=== PATIENT | female | born 1965 | race Caucasian/White ===

== ENCOUNTER 2016-06-09 10:22 | Outpatient (RCR) | payer MEDICARE | END 2016-09-07 | disposition home or self-care (01) | LOC: DT 10:22 | PROVIDERS: ATTEND Family Medicine | DX: E11.649 Type 2 diabetes mellitus with hypoglycemia without coma (principal); Z71.3 Dietary counseling and surveillance; Z68.30 Body mass index [BMI] 30.0-30.9, adult | CPT/HCPCS: 97802 ==

== ENCOUNTER → 2016-08-09 | Outpatient (REF) | payer MEDICARE, OTHER ==
[~2016-08-09] MED LIST: AC325T PO; ALB0.5V IH; ALBU2.5V4 INH; ALBU2.5V4 NEB; ALBU8.5H2 IH; AMOX1TAB12 PO; ASP81CT PO; ASPI-860 PO; ATOR20TA PO; ATOR20TA54 PO; AZIT250T PO; AZTH250C PO; BACL10TA PO; BENZ-13 PO; BUDE90AE2 IH; CEFD300C PO; CHOL400T29 PO; DICY10CA12 PO; DOCU100C8 PO; FAMO20TA13 PO; GBPN300C PO; GFN600TCR PO; IBP200T PO; IBUP-1772 PO; INSU100C7 SQ; INSU100I14 SQ; INSU100V32 SC; IPRA3AMP11 INH; LEVO500T16 PO; LISI-594 PO; LISI5TAB14 PO; LSNP10T PO; MAGN400O7 PO; MELO-255 PO; METF1000 PO; METF500T4 PO; METH4TAB27 PO; MNTL10T PO; MULT-955 PO; NF-ESOM40C PO; OMEG300C3 PO; OMEP20CA12 PO; OXYC1TAB6 PO; PAMI30VI8 SQ; PANT40TA3 PO; POLY17PO2 PO; POLY1DRO2 OU; PRAV40TA2 PO; PRD20T PO; QUET50TA3 PO; SERT25TA PO; SERT50TA PO; VILA20TA; VILA40TA PO; VIT-9 PO; VIT1CAPS43 PO; ZLP10T PO; ZOLP10TA PO; [UNRECOGNIZED DRUG - OTHER]
[2016-08-09 12:13] LABS: BASOPHILS % (AUTO) 1 % (0-2); EOSINOPHILS # (AUTO) 0.2 10^3uL; EOSINOPHILS % (AUTO) 3 % (0-4); LYMPHOCYTES # (AUTO) 2.3 X10^3; MEAN CORPUSCULAR HEMOGLOBIN 30.1 PG (26.0-34.0); MEAN CORPUSCULAR HGB CONC 34.2 g/dL (31.0-37.0); MEAN CORPUSCULAR VOLUME 88 FL (80-100); MEAN PLATELET VOLUME 9.7 FL (6.0-9.5); MONOCYTES # (AUTO) 0.6 X10^3; MONOCYTES % (AUTO) 7 % (3-11); NEUTROPHILS # (AUTO) 5.8 X10^3; NEUTROPHILS % (AUTO) 64 % (51-67); PLATELET COUNT 400 10^3uL (150-450); WHITE BLOOD COUNT 8.92 10^3uL (4.0-11.0)
[2016-08-09 12:30] LABS: ANION GAP 15.1 MEQ/L (3-15); CALCULATED IONIZED CALCIUM 4.3 mg/dL (3.8-4.6); TOTAL PROTEIN 6.9 g/dL (6.4-8.5)
== END ==
LOC: LAB 11:21
PROVIDERS: ATTEND Family Medicine
DX: R53.83 Other fatigue (principal)
CPT/HCPCS: 80053; 82306; 82607; 82746; 85025

== ENCOUNTER 2016-09-24 11:54 | Inpatient (IN) | payer MEDICARE ==
[~2016-09-24] VITALS: Ht 167.6 cm; Wt 89.1 kg
[2016-09-24] MEDS ORDERED: methylPREDNISolone 125 MG (Solu-MEDROL) VIAL IM ONE (12:50)
[2016-09-24] MEDS ORDERED: ALBUTEROL/IPRATROPIUM 3MG-0.5MG/3ML (DUONEB) NEB VIAL INH ONE (12:50)
[2016-09-24 13:08] LABS: INFLUENZA VIRUS TYPE A ANTIBOD Negative (NEGATIVE); INFLUENZA VIRUS TYPE B ANTIBOD Negative (NEGATIVE)
[2016-09-24] MEDS ORDERED: ALBUTEROL 0.083% NEB SOLUTION 2.5 MG/3 ML VIAL INH ONE ×2 (13:35→16:20)
[2016-09-24] MEDS ORDERED: SODIUM CHLORIDE FLUSH 10 ML SYR IV PRN (15:00)
[2016-09-24 15:21] LABS: MEAN CORPUSCULAR HEMOGLOBIN 30.6 PG (26.0-34.0); MEAN CORPUSCULAR HGB CONC 33.9 g/dL (31.0-37.0); MEAN CORPUSCULAR VOLUME 90 FL (80-100); MEAN PLATELET VOLUME 9.5 FL (6.0-9.5); PLATELET COUNT 383 10^3uL (150-450); WHITE BLOOD COUNT 18.25 10^3uL (4.0-11.0)
[2016-09-24 15:33] LABS: ALBUMIN 3.9 g/dL (3.4-5.0); ANION GAP 15.2 MEQ/L (3-15); TOTAL PROTEIN 7.1 g/dL (6.4-8.5)
[2016-09-24 15:38] LABS: BAND NEUTROPHILS % 3 % (0-6); EOSINOPHILS % 1 % (0-4); MONOCYTES # 0.5 #; MONOCYTES % 3 % (3-11); RBC MORPH NORMAL (NORMAL); SEGMENTED NEUTROPHILS % 82 % (51-67); TOTAL CELLS COUNTED 100
[2016-09-24] MEDS ORDERED: LEVOFLOXACIN 500 MG/100 ML IV 100 ML IV ONE (17:10)
[2016-09-24] MEDS ORDERED: LORazepam 2 MG/ML (ATIVAN) 1 ML VIAL IV ONE (17:10)
--- NOTE | 2016-09-24 17:50 | NUR ---
Admit to room 305 from ED per w/c c son accompanying
[2016-09-24] MEDS ORDERED: POLYETHYLENE GLYCOL 17 GM (MIRALAX) PACKET PO PRN (18:05)
[2016-09-24] MEDS ORDERED: ALBUTEROL 0.5% NEB SOLUTION 2.5 MG/0.5 ML VIAL INH PRN (18:05)
[2016-09-24] MEDS ORDERED: ACETAMINOPHEN 325 MG TAB (TYLENOL) PO PRN (18:05)
[2016-09-24] MEDS ORDERED: IBUPROFEN 600 MG (MOTRIN) TAB PO PRN (18:05)
--- NOTE | 2016-09-24 18:10 | NUR ---
See Medical admission assessment - audible end exp wz c accessory muscle use
[2016-09-24 18:17] VITALS: BP 169/69
[2016-09-24 18:24] VITALS: BP 169/69
[2016-09-24] MEDS: INSULIN LISPRO 1 UNIT/0.01 ML (HUMALOG) DOSE SC SCH (18:40)
[2016-09-24] MEDS ORDERED: SODIUM CHLORIDE FLUSH 10 ML ONE (18:42)
--- NOTE | 2016-09-24 19:14 | NUR ---
Report given to Rachelle WESTFALL and care relinquished
--- NOTE | 2016-09-24 19:25 | NUR ---
Pt is sitting on edge of bed, son is at bedside. Alert and oriented x 4, Resp are labored, use of excessory muscles, wheezing on inspiration and expiration, diminished bases, Moist cough. Pt is assisted to bathroom, ambulates well, does have some weakness. HRRR, BS are active x 4 quadrants. SL is patent, no redness, swelling, or s/s of infection noted at this time. Denies pain or needs at this time. For further information see assessment. Call light is in reach, will continue to monitor.
[2016-09-24] MEDS: ALBUTEROL/IPRATROPIUM 3MG-0.5MG/3ML (DUONEB) NEB VIAL INH SCH ×2 (20:04→23:00)
--- NOTE | 2016-09-24 20:45 | NUR ---
RT reports to this RN that pt is not responding to breathing treatments. This RN said she would let Dr. Estrada know.
[2016-09-24] MEDS: INSULIN GLARGINE 1 UNIT/0.01ML (LANTUS) DOSE SC SCH (20:51)
--- NOTE | 2016-09-24 21:09 | NUR ---
This RN notified Dr. Estrada that RT did not think pt was responding to breathing treatments. Dr. Estrada said, "She has a virus with her asthma, and has not been taking any of her home medications for her asthma, so I did not expect a big difference with the breathing treatments." Also let Dr. Estrada know that pt had a BS of 400, received order to start pt on Medium SSI.
[2016-09-24] MEDS ORDERED: INSULIN LISPRO 1 UNIT/0.01 ML (HUMALOG) DOSE SC SCH (21:15)
[2016-09-24] MEDS ORDERED: MAGNESIUM 2 GM/50 ML IVPB 50 ML IV ONE (23:20)
[2016-09-24] MEDS ORDERED: SODIUM CHLORIDE 50 ML IV ONE (23:31)
[2016-09-24] MEDS ORDERED: MAGNESIUM SULFATE 1 GM/2 ML VIAL ONE (23:32)
[2016-09-24 23:45] VITALS: BP 131/75
[2016-09-25] VITALS (7 sets, daily range): BP systolic 130–184; BP diastolic 60–80
[2016-09-25] MEDS: ALBUTEROL/IPRATROPIUM 3MG-0.5MG/3ML (DUONEB) NEB VIAL INH SCH ×4 (03:24→20:25)
--- NOTE | 2016-09-25 04:33 | NUR ---
Pt is sitting up in bed, just recently assisted to restroom, SOA, received RT treatment about an hour ago. Call light is in reach, denies needs, will continue to monitor.
[2016-09-25] MEDS ORDERED: INSULIN LISPRO 1 UNIT/0.01 ML (HUMALOG) DOSE SC ONE (06:00)
[2016-09-25 06:08] LABS: MEAN CORPUSCULAR HEMOGLOBIN 31.2 PG (26.0-34.0); MEAN CORPUSCULAR HGB CONC 34.3 g/dL (31.0-37.0); MEAN CORPUSCULAR VOLUME 91 FL (80-100); MEAN PLATELET VOLUME 10.2 FL (6.0-9.5); PLATELET COUNT 447 10^3uL (150-450); WHITE BLOOD COUNT 18.99 10^3uL (4.0-11.0)
[2016-09-25 06:26] LABS: ALBUMIN 3.7 g/dL (3.4-5.0); ANION GAP 18.1 MEQ/L (3-15); CALCULATED IONIZED CALCIUM 4.5 mg/dL (3.8-4.6); TOTAL PROTEIN 6.4 g/dL (6.4-8.5)
[2016-09-25 06:46] LABS: BAND NEUTROPHILS % 2 % (0-6); EOSINOPHILS % 0 % (0-4); LYMPHOCYTES # 1.3 #; MONOCYTES # 0.5 #; MONOCYTES % 3 % (3-11); RBC MORPH NORMAL (NORMAL); SEGMENTED NEUTROPHILS % 88 % (51-67); TOTAL CELLS COUNTED 100
[2016-09-25] MEDS ORDERED: INSULIN LISPRO 1 UNIT/0.01 ML (HUMALOG) DOSE SC SCH ×2 (07:30)
[2016-09-25] MEDS ORDERED: predniSONE 20 MG (DELTASONE) TABLET PO SCH (08:00)
--- NOTE | 2016-09-25 08:25 | NUR ---
NUTRITION ASSESSMENT Level 1 Patient: Leonora Bailey Age/Sex: 51/F Date Screened: 09-25-16 Weight: 196#/89.1 kg Height: 66 inches Primary Diagnosis: asthma Diet Order: medium diabetic, vegan Relevant labs: potassium 5.7, glucose 444 Food allergies: N Nutrition Assessment Criteria Age over 80: N Body Mass Index (BMI) under 19: N Admission Screening Indicates Risk? 3 points Moderate/High Risk Diagnosis: N TPN or PPN: N NPO or clear liquid diet: N Serum Glucose <70 or >180: 3 points Hgb A1c >6.7: N/A Total: 6 points Risk Screen: __ Patient at low nutritional risk based on available data; reevaluate in 5-7 days __ Patient at moderate nutritional risk based on available data; reevaluate in 3-5 days _X_ Patient at high nutritional risk; complete Nutrition Assessment within 48 hours of admission.
--- NOTE | 2016-09-25 09:00 | NUR ---
Pt sitting up in bed at this time. Appears quite anxious. Denies SOA or pain. Resprs slightly labored, even on RA. Skin warm, dry, intact. Pt states "I don't even know what's wrong with me. I want to go home". Informed pt of diagnosis. When asked if she feels well enough to go home, pt shrugs her shoulders. Bloustine notified of pt's anxiety.
[2016-09-25] MEDS: INSULIN LISPRO 1 UNIT/0.01 ML (HUMALOG) DOSE SC SCH ×7 (09:05→21:06)
--- NOTE | 2016-09-25 09:37 | NUR ---
Pt found lying in bed on RA, SPO2 98%, HR 91, RR 18 and mildly labored, BS have wheezes in all lung saavedra with audible wheezes also. Duoneb given with minimal change in BS post Tx. Dr Granda consulted for modification of Tx.
[2016-09-25] MEDS ORDERED: ALBUTEROL 0.083% NEB SOLUTION 2.5 MG/3 ML VIAL INH ONE (09:55)
[2016-09-25] MEDS ORDERED: SODIUM CHLORIDE 0.9% NEB SOLN 3 ML VIAL ONE (09:56)
--- NOTE | 2016-09-25 09:56 | NUR ---
NUTRITION ASSESSMENT Level II Patient: Leonora Bailey Age/Sex: 51/F Date Assessed: 09-25-16 ASSESSMENT Pertinent History: Patient admitted with asthma and screened at high nutritional risk secondary to hx. severely restricted vegan diet with unintentional weight loss and severe hypoglycemia, and current hyperglycemia. PMHx includes depression, IBS, HTN, diabetes and anxiety. I saw pt. as an outpatient in 2015 re: appropriate vegan diet to stabilize blood sugars. At that time, pt. was not eating much secondary to decreased appetite, and was mostly eating fruit, salad, black du burgers and avocados. She had lost 38# between January and 2015. Since then, she has regained 5#. Pt. reports being ALLERGIC to ORANGES; I entered this into [employer]. She also avoids bread, pasta, cereal, tea, coffee and of course dairy. She drinks mostly water with occasional diet Pepsi, and will eat rice and potatoes. She thinks that grapes, apples and watermelon spike her blood sugar. Meds/Nutrition: Prednisone, Humalog, Lantus Weight: 196#/89.1 kg Height: 66 inches Body Mass Index (BMI): 31.7 [place] Body Weight : 130#/59 kg % IBW: 150% GASTROINTESTINAL Appetite: fair, eating 50% Diet Order: medium diabetic, vegan Unintentional loss of >10 lbs. in 3 months: N Difficult to chew/swallow: N Diabetes: Yes Relevant Labs: potassium 5.7, glucose 444 Calculations for Nutritional Assessment Estimated calorie needs: 22-25 kcals/kg = 1,960-2,225 kcals Estimated protein needs: 1.0-1.1 g/kg = 89-97 g./day DIAGNOSIS 1. Nutrition Diagnosis: Altered nutrition-related lab values (glucose) related to medications and endocrine dysfunction as evidenced by glucose 444 in pt. with diabetes taking steroids. NUTRITIONAL INTERVENTION Goal: Patient will receive adequate nutrition to meet her needs. Plan: Will tailor menu to meet vegan requirements as well as controlled CHO for diabetes. Will emphasize fresh fruit and vegetables within CHO allowance as well as black beans as a primary protein source. Will follow closely. MONITORING & EVALUATION _X_ Monitor patients menu selections _X_ Monitor patients food intake per nursing notes __ Monitor NPO/clear liquid days _X_ Monitor lab values __ Monitor I&O __ Other
--- NOTE | 2016-09-25 10:04 | NUR ---
Starting continuous nebulizer at 1006 with a goal total of 10 mg Albuterol over 1 hour. BS have wheezes throughout all lung saavedra.
[2016-09-25] MEDS ORDERED: DEXTROSE 50% 25 GM/50 ML SYRINGE IV PRN (10:10)
[2016-09-25] MEDS ORDERED: BENZONATATE 100 MG (TESSALON) CAPSULE PO PRN (10:10)
[2016-09-25] MEDS ORDERED: GLUCAGON EMERGENCY 1 MG/KIT IM PRN (10:10)
[2016-09-25] MEDS ORDERED: DEXTROSE ORAL GEL (GLUTOSE 40%) 15 GM TUBE PO PRN (10:10)
[2016-09-25] MEDS: LORazepam 2 MG/ML (ATIVAN) 1 ML VIAL IV PRN ×2 (10:19→15:06)
--- NOTE | 2016-09-25 10:19 | NUR ---
PRN Ativan given at this time via SIVP. Breathing tx still in process. RT in room.
[2016-09-25] MEDS: epiNEPHrine (RACEMIC) 2.25% NEB SOLN 11.25 MG/0.5 ML VIAL INH PRN ×2 (10:29→14:19)
--- NOTE | 2016-09-25 10:29 | NUR ---
Half way through hour long neb, 11.25 mg Racemic epi/3 ml NS given via SVN
--- NOTE | 2016-09-25 10:50 | NUR ---
Hour long neb finished at 1100, accessory muscle use decreased, upper airway wheezes decreased, Pt has mild shaking of hands, but states she feels better than when we started.
[2016-09-25] MEDS ORDERED: lisINopril 5 MG (PRINIVIL) TABLET PO SCH (11:58)
[2016-09-25] MEDS ORDERED: methylPREDNISolone 125 MG (Solu-MEDROL) VIAL IV ONE (12:00)
[2016-09-25] MEDS: HALL'S COUGH DROPS MM PRN ×2 (12:13→16:23)
[2016-09-25] MEDS: guaiFENesin ER 600 MG (MUCINEX) TAB PO SCH ×2 (12:13→21:03)
--- NOTE | 2016-09-25 12:15 | NUR ---
Pt resting in bed with family at bedside. Resprs nonlabored, even on RA. Denies needs.
[2016-09-25] MEDS: lisINopril 10 MG (PRINIVIL) TABLET PO SCH (13:05)
[2016-09-25] MEDS ORDERED: NS FLUSH 3 ML PRN IV (14:15)
--- NOTE | 2016-09-25 14:19 | NUR ---
MULTIDISCIPLINARY MTG/DR. KENYON: Pt. admitted for URI, status asthmaticus and respiratory failure. Pt. therapies were escalated and she appears to be doing better. Pt. home medications were resumed and she will possibly be discharged home Sunday. No discharge needs identified at this time.
--- NOTE | 2016-09-25 14:21 | NUR ---
Pt found lying in bed on RA, SPO2 95%, HR 113 RR 18-20 and mildly labored with upper airway stridor and wheezes in upper lobes of both lungs. Duoneb and 11.25 mg Racemic Epi given via SVN tolerated well. Both stridor and wheezes decreased post Tx. IS on hold at this time.
--- NOTE | 2016-09-25 14:23 | NUR ---
MED REC COMPLETE--current med list obtained from external med history application, retail pharmacy ([facility]), patient interview, and list from patient's PCP (Dr. Romero). Addendum: 09/25/16 at 1425 by Pamela Fairchild PHARM Completed by Shawnee Adhikari Pharm. D. Candidate 2017
--- NOTE | 2016-09-25 14:30 | NUR ---
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 States she feels better. Denies needs.
[2016-09-25] MEDS ORDERED: SODIUM CHLORIDE FLUSH 10 ML SYR IV PRN (15:00)
--- NOTE | 2016-09-25 15:06 | NUR ---
Pt tearful in room, unable to keep legs still. PRN Ativan given at this time. Will continue to monitor.
[2016-09-25] MEDS ORDERED: QUEtiapine 50 MG (SEROquel) TAB IMMEDIATE RELEASE PO ONE (15:35)
[2016-09-25] MEDS ORDERED: LEVOFLOXACIN 500 MG/100 ML IV 100 ML IV ONE (17:10)
--- NOTE | 2016-09-25 18:18 | NUR ---
Called to room to "give a treatment" by staff, when I arrived to the room within four to five minutes the Pt was sound asleep. I asked if RN had been in the room recently and she said she was about to go in. When the RN went in the Pt didn't open her eyes, coughed once or twice and did not seem to be in distress at this time. I did not wake her.
--- NOTE | 2016-09-25 18:45 | NUR ---
Pt asleep in bed at this time. Family states she has not eaten her dinner. Skin warm, dry, intact. Resprs nonlabored, even on RA. No audible wheezes or stridor noted. This nurse noted recent self harm scabs on L upper arm. Old scars present from wrist up to shoulder on bilateral arms, but recent scratches and scabs noted on L upper arm. Bloustine notified.
--- NOTE | 2016-09-25 19:25 | NUR ---
Pt is resting in bed, son and pt's boyfriend at bedside. Alert and oriented x 4, Resp are labored, use of excessory muscles, wheezing on inspiration and expiration, diminished bases, Moist cough. HRRR, BS are active x 4 quadrants. IV is infusing without difficulty, no redness, swelling, or s/s of infection noted at this time. Denies pain or needs at this time. For further information see assessment. Call light is in reach, will continue to monitor.
[2016-09-25] MEDS ORDERED: BUDESONIDE NEBS 0.5 MG/2ML (PULMICORT) AMP INH ONE (19:53)
[2016-09-25] MEDS: BUDESONIDE NEBS 0.5 MG/2ML (PULMICORT) AMP INH SCH (20:25)
[2016-09-25] MEDS ORDERED: GABAPENTIN 300 MG (NEURONTIN) CAP PO SCH (21:00)
[2016-09-25] MEDS ORDERED: QUEtiapine 50 MG (SEROquel) TAB IMMEDIATE RELEASE PO SCH (21:00)
[2016-09-25] MEDS: methylPREDNISolone 125 MG (Solu-MEDROL) VIAL IV SCH (21:02)
[2016-09-25] MEDS: GABAPENTIN 300 MG (NEURONTIN) CAP PO SCH (21:03)
[2016-09-25] MEDS: MONTELUKAST 10 MG (SINGULAIR) TAB PO SCH (21:03)
[2016-09-25] MEDS: QUEtiapine 50 MG (SEROquel) TAB IMMEDIATE RELEASE PO SCH (21:04)
[2016-09-25] MEDS: ATORVASTATIN 10 MG (LIPITOR) TABLET PO SCH (21:04)
[2016-09-25] MEDS: INSULIN GLARGINE 1 UNIT/0.01ML (LANTUS) DOSE SC SCH (21:06)
--- NOTE | 2016-09-26 03:57 | NUR ---
Pt is resting in bed asleep on her stomach, son is asleep in room on cot. Has been asleep most of this shift, has had a flat affect during this shift. Call light is in reach, will continue to monitor.
[2016-09-26 04:34] VITALS: BP 147/73
[2016-09-26 06:06] LABS: MEAN CORPUSCULAR HEMOGLOBIN 30.9 PG (26.0-34.0); MEAN CORPUSCULAR HGB CONC 34.3 g/dL (31.0-37.0); MEAN CORPUSCULAR VOLUME 90 FL (80-100); MEAN PLATELET VOLUME 9.8 FL (6.0-9.5); PLATELET COUNT 445 10^3uL (150-450); WHITE BLOOD COUNT 21.84 10^3uL (4.0-11.0)
[2016-09-26 06:21] LABS: ALBUMIN 3.4 g/dL (3.4-5.0); ANION GAP 11.4 MEQ/L (3-15); MAGNESIUM* 2.1 mg/dL (1.6-2.3); PHOSPHORUS 3.8 mg/dL (2.4-4.9)
[2016-09-26 06:38] LABS: BAND NEUTROPHILS % 0 % (0-6); EOSINOPHILS % 0 % (0-4); LYMPHOCYTES # 1.3 #; MONOCYTES # 0.2 #; MONOCYTES % 1 % (3-11); RBC MORPH NORMAL (NORMAL); SEGMENTED NEUTROPHILS % 93 % (51-67); TOTAL CELLS COUNTED 100
[2016-09-26 07:41] VITALS: BP 136/64
[2016-09-26] MEDS: ALBUTEROL/IPRATROPIUM 3MG-0.5MG/3ML (DUONEB) NEB VIAL INH SCH ×4 (07:49→20:10)
[2016-09-26] MEDS: BUDESONIDE NEBS 0.5 MG/2ML (PULMICORT) AMP INH SCH ×2 (07:49→20:10)
[2016-09-26] MEDS: INSULIN LISPRO 1 UNIT/0.01 ML (HUMALOG) DOSE SC SCH ×7 (08:00→21:08)
[2016-09-26] MEDS: MULTIVITAMIN W/MINERALS (THERAGRAN M) TABLET PO SCH (08:00)
[2016-09-26] MEDS: PANTOPRAZOLE 40 MG (PROTONIX) TAB PO SCH (08:18)
[2016-09-26] MEDS: guaiFENesin ER 600 MG (MUCINEX) TAB PO SCH ×2 (08:18→21:09)
[2016-09-26] MEDS: ENOXAPARIN 40 MG/0.4 ML (LOVENOX) SYR SC SCH (08:19)
[2016-09-26] MEDS: OMEGA-3 FATTY ACIDS (FISH OIL) 500 MG CAPSULE PO SCH (08:19)
[2016-09-26] MEDS: methylPREDNISolone 125 MG (Solu-MEDROL) VIAL IV SCH ×2 (08:19→21:08)
[2016-09-26] MEDS: lisINopril 10 MG (PRINIVIL) TABLET PO SCH (08:22)
[2016-09-26] MEDS: NS FLUSH 3 ML DAILY IV SCH (08:40)
--- NOTE | 2016-09-26 08:40 | NUR ---
Pt awake in room, has already had breathing treatment with Rafia RT. Pt refuses to eat bfst- denies nausea, just states no appetite. Spoke with Dr. Granda regarding amount of Humalog to give for fasting blood sugar of 266- VORB to only give sliding scale at this time- Humalog 5units given to KRZYSZTOF. Dried cuts noted to KRZYSZTOF when giving insulin. Crying and tearful during assessment, AM meds and Dr. Granda rounding. Pt unable to verbalize emotions or concerns- cries. Refused to take Lisinopril this AM- states she takes at HS- Spoke to Yoni Lacey regarding changing time in eMar. Refused multivitamin- states "I'm not taking any vitamins get it out of here!". Audible wheezes noted- remains on RA. Resp even, rate of 22. Call light within reach, door ajar for frequent visual monitoring.
[2016-09-26] MEDS ORDERED: OMEGA-3 FATTY ACIDS (FISH OIL) 500 MG CAPSULE PO SCH (09:00)
[2016-09-26] MEDS ORDERED: PANTOPRAZOLE 40 MG (PROTONIX) TAB PO SCH (09:00)
[2016-09-26] MEDS: LORazepam 2 MG/ML (ATIVAN) 1 ML VIAL IV PRN (10:51)
--- NOTE | 2016-09-26 11:13 | NUR ---
20g IV dcd from LFA due to tenderness/irritated site. 22g IV started in Rt wrist by Bhanu WESTFALL from ICU. Ativan 1mg IV given as ordered for anxiety. Pts boyfriend and son are at bedside. Pt c/o KRZYSZTOF Morataya RT at doorside for breathing treatment.
[2016-09-26] MEDS: ALBUTEROL 0.083% NEB SOLUTION 2.5 MG/3 ML VIAL INH PRN ×2 (11:14→16:13)
--- NOTE | 2016-09-26 11:18 | NUR ---
Pt. requested SVN, Albuterol given @ 1118. Audible wheezing before and after tx. Aristeo. well with loose NPC. Pt. on room air, 94% after tx..
[2016-09-26 11:21] VITALS: BP 156/70
--- NOTE | 2016-09-26 14:48 | NUR ---
Pt has been resting quietly in bed, earbuds in place listening to music. No resp c/o or difficulties noted while she's been resting. Will cont to monitor patient.
--- NOTE | 2016-09-26 16:02 | NUR ---
Pt to shower- increased SOA, difficulty breathing. Rafia RT called- she is on her way to room for treatment. Pt is crying and tearful again- son at bedside. Addendum: 09/26/16 at 1604 by Mary Harmon RN O2 sats 98% on RA HR 84. Rafia in room for treatment.
[2016-09-26 16:06] VITALS: BP 140/62
[2016-09-26] MEDS ORDERED: LORazepam 1 MG (ATIVAN) TABLET PO PRN (16:40)
[2016-09-26] MEDS: VIIBRYD 40 MG PO SCH (16:44)
--- NOTE | 2016-09-26 17:19 | NUR ---
Exp. wheezing before and after nebulizer tx's today. Pt. emotional most of the day. 95-98% sat's on room air today. 2 prn tx's today.
--- NOTE | 2016-09-26 17:25 | NUR ---
Pt asks for Ativan. Ativan 1mg PO given for anxiety- crying and tearful while son is at bedside. Pt kicking her feet in bed.
[2016-09-26] MEDS ORDERED: ASPIRIN 325 MG TAB PO ONE (18:10)
[2016-09-26] MEDS ORDERED: morphine INJ 2 MG/ML 1 ML SYRINGE IV PRN (18:10)
[2016-09-26] MEDS: NITROGLYCERIN SUBLINGUAL 0.4 MG (NITROQUICK) TABLET SL PRN ×2 (18:13→18:27)
--- NOTE | 2016-09-26 18:39 | NUR ---
180 Pt calls Cristela Thompson CNA to room- asks to talk to Dr. Granda- Cristela reported to this nurse the patient request. This nurse went to patient room to explain that Dr ana rollins is there anything RN could help with. She shakes her head "no". Then I asked pt if this was an emergent matter to talk to him or if I could relay a message to him. She states "My chest hurts." She can't answer whether she feels palpitations or cardiac related changed- pain is localized to left breast area. 1806- Dr. Granda is notified- states he will enter orders and be in to see patient. Rafia RT called for stat EKG. on her way. lab called for stat troponin. 1812- BP 164/76, HR 75, O2 92% RA. Crying and tearful, holding left chest. 1815-ASA 325mg PO given. Nitro 1tab given. pain is rated 7/10 localized still. 1820- Lab in room for Troponin, RT in room for EKG. Rates chest pain the same- 7/10 localized. BP 168/74. 1822- O2 placed at 2L nc per Rafia RT. 1826- 158/82, Persistent 4/10 localized chest pain- Nitro 1tab given now. Crying and tearful. Pt c/o headache. Explained to patient numerous times during all of these activities purpose of procedure- but pt closes eyes and cries- won't respond to nurse. 1831- 160/80. Rates left chest pain 2/10 localized. 1837-158/80. Pain remains at 2/10. O2 @ 2L nc. Will cont to monitor patient. Dr. Granda on his way to assess pt.
--- NOTE | 2016-09-26 18:50 | NUR ---
Humalog 10units held- patient is refusing supper.
[2016-09-26] MEDS: ONDANSETRON 4 MG (ZOFRAN) ORAL DISSOLVE TAB PO PRN (18:54)
[2016-09-26] MEDS ORDERED: SODIUM CHLORIDE 0.9% NEB SOLN 3 ML VIAL ONE (19:37)
[2016-09-26 20:09] VITALS: BP 120/60
[2016-09-26] MEDS: epiNEPHrine (RACEMIC) 2.25% NEB SOLN 11.25 MG/0.5 ML VIAL INH PRN (20:10)
--- NOTE | 2016-09-26 20:15 | NUR ---
Pt found lying in bed on 2 l/min NC, SPO2 99%, HR 101, RR 18 and mildly labored with wheezes in bilateral upper lobes and mild stridor. 11.25 mg Racemic Epinephrine given with 3 ml NS followed by Duoneb and Pulmicort, all via SVN with occasional cough. Pt c/o feeling worse post Txs throughout the day. Cough increases during Tx. Pt did not tolerate Duoneb and Pulmicort for entire neb, stopped at Pt demand at about 2.5 mins in. Report of my visit given to MALOU Ngo.
[2016-09-26] MEDS: INSULIN GLARGINE 1 UNIT/0.01ML (LANTUS) DOSE SC SCH (21:08)
[2016-09-26] MEDS: QUEtiapine 50 MG (SEROquel) TAB IMMEDIATE RELEASE PO SCH (21:09)
[2016-09-26] MEDS: MONTELUKAST 10 MG (SINGULAIR) TAB PO SCH (21:09)
[2016-09-26] MEDS: GABAPENTIN 300 MG (NEURONTIN) CAP PO SCH (21:09)
[2016-09-26] MEDS: ATORVASTATIN 10 MG (LIPITOR) TABLET PO SCH (21:09)
[2016-09-27 00:02] VITALS: BP 137/60
[2016-09-27 04:23] VITALS: BP 124/82
[2016-09-27 06:18] LABS: MEAN CORPUSCULAR HEMOGLOBIN 30.5 PG (26.0-34.0); MEAN CORPUSCULAR HGB CONC 33.7 g/dL (31.0-37.0); MEAN CORPUSCULAR VOLUME 90 FL (80-100); PLATELET COUNT 446 10^3uL (150-450)
--- NOTE | 2016-09-27 06:32 | NUR ---
Patient has seemed less anxious this shift and was able to sleep through most of the night. This AM, states that she is feeling a little better, able to speak in full sentences, stridor and wheezing not noticed. No needs at this time.
[2016-09-27 07:06] LABS: BAND NEUTROPHILS % 0 % (0-6); EOSINOPHILS % 0 % (0-4); LYMPHOCYTES # 1.8 #; MONOCYTES # 0.2 #; MONOCYTES % 1 % (3-11); RBC MORPH NORMAL (NORMAL); SEGMENTED NEUTROPHILS % 88 % (51-67); TOTAL CELLS COUNTED 100
[2016-09-27 07:43] VITALS: BP 124/62
[2016-09-27] MEDS: MULTIVITAMIN W/MINERALS (THERAGRAN M) TABLET PO SCH (08:00)
[2016-09-27] MEDS: guaiFENesin ER 600 MG (MUCINEX) TAB PO SCH ×2 (08:31→21:46)
[2016-09-27] MEDS: INSULIN LISPRO 1 UNIT/0.01 ML (HUMALOG) DOSE SC SCH ×7 (08:31→21:43)
[2016-09-27] MEDS: ENOXAPARIN 40 MG/0.4 ML (LOVENOX) SYR SC SCH (08:31)
[2016-09-27] MEDS: OMEGA-3 FATTY ACIDS (FISH OIL) 500 MG CAPSULE PO SCH (08:32)
[2016-09-27] MEDS: PANTOPRAZOLE 40 MG (PROTONIX) TAB PO SCH (08:32)
[2016-09-27] MEDS: ASPIRIN 81 MG CHEW (CHILDREN'S ASA) PO SCH (08:32)
[2016-09-27] MEDS: VIIBRYD 40 MG PO SCH (08:33)
[2016-09-27] MEDS: lisINopril 10 MG (PRINIVIL) TABLET PO SCH ×2 (08:35→21:47)
[2016-09-27] MEDS: NS FLUSH 3 ML DAILY IV SCH (09:00)
--- NOTE | 2016-09-27 10:09 | NUR ---
Pt. sleeping at this time, no audible wheezing, RN requested to not awaken pt..
--- NOTE | 2016-09-27 11:09 | NUR ---
Nutrition Follow Up: Patient has not been eating since admission, other than an occasional meal of 25%. Noted she has been very anxious and emotional the past few days and reports not being hungry. Weight today: N/A since admission--will request from nursing. Labs: N/A 1. I am sending her a homemade fruit smoothie with almond milk for lunch in an attempt to spark interest in eating. 2. Consider daily MVI. 3. Will continue to monitor length of time before her appetite perks back up. Expect intake to resume as illness improves.
--- NOTE | 2016-09-27 11:35 | NUR ---
Call placed to [facility] [phone] to refill script of Viibrid. No answer, message left on machine to return call to this nurse. Last home dose of Viibrid was given this AM. Patients boyfriend Tone in room and he states he would go pick script up from [facility] pharmacy and bring here to have verified by [facility] to give while inpatient.
--- NOTE | 2016-09-27 11:41 | NUR ---
Received return call from Leola WESTFALL at [place]- she will call refill script to [facility]'s pharmacy and leave message that Tone will pick it up. Message delivered to patient and Tone- verbalizes understanding.
[2016-09-27 11:47] VITALS: BP 132/70
[2016-09-27] MEDS: ALBUTEROL/IPRATROPIUM 3MG-0.5MG/3ML (DUONEB) NEB VIAL INH SCH ×2 (12:00→17:17)
[2016-09-27] MEDS: BUDESONIDE NEBS 0.5 MG/2ML (PULMICORT) AMP INH SCH (12:08)
--- NOTE | 2016-09-27 12:30 | NUR ---
Notified Dr. Granda that patient refused to eat lunch and that her 1200 blood glucose fingerstick was 160. Dr. Granda gave VORB to hold prandial Humalog 10units at this time.
[2016-09-27] MEDS ORDERED: KETOROLAC 30 MG/ML (TORADOL) 1 ML VIAL IV ONE (13:50)
[2016-09-27] MEDS ORDERED: SODIUM CHLORIDE 250 ML ONE (14:05)
[2016-09-27] MEDS: cefTRIAXone SODIUM 1,000 MG in SODIUM CHLORIDE 50 ML IV SCH (14:12)
[2016-09-27] MEDS ORDERED: AZITHROMYCIN VIAL 500 MG in SODIUM CHLORIDE 250 ML IV ONE (14:30)
--- NOTE | 2016-09-27 15:13 | NUR ---
louisa Wayne brought bottle of Viibrid to this nurse- sent to Pharmacy for verification. Verna Sutherland from pharmacy sent back to this nurse- placed in med room drawer. Rocephin 1g IV as ordered started at 1412. Zithromax IV as ordered started at 1451. IV to Rt wrist flushes without difficulty. Pt pleasant this afternoon, smiled at this nurse and thanked several times for care. Addendum: 09/27/16 at 1517 by Mary Harmon RN Toradol IV was given at 1412 as well.
[2016-09-27 15:52] VITALS: BP 140/72
[2016-09-27] MEDS: ONDANSETRON 4 MG (ZOFRAN) ORAL DISSOLVE TAB PO PRN (18:05)
[2016-09-27] MEDS: KETOROLAC 15 MG/ML (TORADOL) 1 ML VIAL IV PRN (18:06)
--- NOTE | 2016-09-27 18:10 | NUR ---
Pt refused to eat supper. Held Prandial insulin. Pt states she is nauseous- offered Zofran- patient agreed to take it. Given now. Toradol given now.
[2016-09-27 19:56] VITALS: BP 137/72
--- NOTE | 2016-09-27 20:00 | NUR ---
Patent resting in bed. Visiting with . Is in good spirits tonight. No discomforts stated at this time. States that son will be staying the night, tonight. Reminded to use call light when she has any needs. Call light within reach.
--- NOTE | 2016-09-27 20:37 | NUR ---
Pt assessed at this time, BS essentially clear, no distress, no PRN indicated. Pt asks not to be awakened during the night unless she calls for PRN.
[2016-09-27] MEDS: ATORVASTATIN 10 MG (LIPITOR) TABLET PO SCH (21:44)
[2016-09-27] MEDS: GABAPENTIN 300 MG (NEURONTIN) CAP PO SCH (21:45)
[2016-09-27] MEDS: QUEtiapine 50 MG (SEROquel) TAB IMMEDIATE RELEASE PO SCH (21:45)
[2016-09-27] MEDS: MONTELUKAST 10 MG (SINGULAIR) TAB PO SCH (21:45)
[2016-09-27] MEDS: INSULIN GLARGINE 1 UNIT/0.01ML (LANTUS) DOSE SC SCH (21:55)
--- NOTE | 2016-09-28 | NUR ---
Resting well. Respirations even and non-labored. IV Toradol administered as ordered. Patient has no concerns at this time.
[2016-09-28 00:11] VITALS: BP 110/68
[2016-09-28] MEDS: KETOROLAC 15 MG/ML (TORADOL) 1 ML VIAL IV PRN ×2 (00:51→05:38)
[2016-09-28 04:42] VITALS: BP 120/71
[2016-09-28] MEDS: ALBUTEROL/IPRATROPIUM 3MG-0.5MG/3ML (DUONEB) NEB VIAL INH SCH ×4 (05:00→19:47)
[2016-09-28] MEDS: INSULIN LISPRO 1 UNIT/0.01 ML (HUMALOG) DOSE SC SCH ×5 (05:52→21:36)
--- NOTE | 2016-09-28 06:14 | NUR ---
Rested well tonight at long intervals. No discomforts voiced. Stated no need for breathing treatment this morning. Call light within reach.
[2016-09-28] MEDS: BUDESONIDE NEBS 0.5 MG/2ML (PULMICORT) AMP INH SCH ×3 (07:24→19:47)
[2016-09-28 07:49] VITALS: BP 130/62
[2016-09-28] MEDS: NS FLUSH 3 ML DAILY IV SCH (09:00)
[2016-09-28] MEDS: PANTOPRAZOLE 40 MG (PROTONIX) TAB PO SCH (09:05)
[2016-09-28] MEDS: AZITHROMYCIN 250 MG TAB (ZITHROMAX) PO SCH (09:05)
[2016-09-28] MEDS: OMEGA-3 FATTY ACIDS (FISH OIL) 500 MG CAPSULE PO SCH (09:05)
[2016-09-28] MEDS: ASPIRIN 81 MG CHEW (CHILDREN'S ASA) PO SCH (09:05)
[2016-09-28] MEDS: guaiFENesin ER 600 MG (MUCINEX) TAB PO SCH ×2 (09:05→21:37)
[2016-09-28] MEDS: ENOXAPARIN 40 MG/0.4 ML (LOVENOX) SYR SC SCH (09:06)
[2016-09-28] MEDS: MULTIVITAMIN W/MINERALS (THERAGRAN M) TABLET PO SCH (09:06)
[2016-09-28] MEDS: VIIBRYD 40 MG PO SCH (09:10)
[2016-09-28 10:14] LABS: BASOPHILS % (AUTO) 0 % (0-2); EOSINOPHILS # (AUTO) 0.1 10^3uL; EOSINOPHILS % (AUTO) 0 % (0-4); MEAN CORPUSCULAR HEMOGLOBIN 30.6 PG (26.0-34.0); MEAN CORPUSCULAR VOLUME 90 FL (80-100); MEAN PLATELET VOLUME 9.3 FL (6.0-9.5); MONOCYTES % (AUTO) 6 % (3-11); NEUTROPHILS # (AUTO) 9.5 X10^3; NEUTROPHILS % (AUTO) 61 % (51-67); PLATELET COUNT 412 10^3uL (150-450); WHITE BLOOD COUNT 15.68 10^3uL (4.0-11.0)
[2016-09-28 11:41] VITALS: BP 132/74
[2016-09-28] MEDS: ONDANSETRON 4 MG (ZOFRAN) ORAL DISSOLVE TAB PO PRN (12:05)
--- NOTE | 2016-09-28 12:09 | NUR ---
Blood sugar found to be 38. Pt awake, interactive, c/o nausea. Attempted to give oral glucose gel, pt did not tolerate this well. IV dextrose 25gm given at this time. PRN Zofran ODT as well. Will continue to monitor.
--- NOTE | 2016-09-28 12:25 | NUR ---
Blood sugar 136 at this time. Encouraged pt to eat carbohydrate-rich foods. Pt is very selective of what foods she will eat. Encouraged family to bring foods from home that she may like. Pt states nothing sounds good. Informed pt she needs to eat something to prevent another hypoglycemic event. Denies needs.
[2016-09-28] MEDS: predniSONE 20 MG (DELTASONE) TABLET PO SCH (13:02)
[2016-09-28] MEDS ORDERED: MAGNESIUM HYDROXIDE 80MG/ML (MILK OF MAGNESIA) 30 ML UDC PO PRN (13:25)
[2016-09-28] MEDS: DOCUSATE SODIUM 100 MG (COLACE) CAP PO SCH ×2 (13:34→21:37)
[2016-09-28] MEDS: cefTRIAXone SODIUM 1,000 MG in SODIUM CHLORIDE 50 ML IV SCH (13:38)
--- NOTE | 2016-09-28 14:42 | NUR ---
MULTIDISCIPLINARY MTG/DR. KENYON: Pt. has been slow to recover. Pt. asthma treatment was increased and this helped Pt. Pt. was placed on antibiotics yesterday for pneumonia. Pt. had a hypoglycemic episode today and will be on sliding scale. Pt. to possibly discharge tomorrow. No discharge needs identified at this time.
[2016-09-28 15:36] VITALS: BP 136/74
--- NOTE | 2016-09-28 17:47 | NUR ---
Pt resting in bed at this time. Blood sugar prior to dinner: 122. Smoothie and salad provided from kitchen. Pt encouraged to have family bring food in from home for her. Skin warm, dry, intact. Resprs nonlabored, even on RA. Droplet precautions in place. SL intact. Pt denies needs.
[2016-09-28 19:46] VITALS: BP 140/70
--- NOTE | 2016-09-28 19:51 | NUR ---
Pt found lying in bed awake on RA, SPO2 96%, HR 69, RR 16 and non labored at this time. BS have some fine wheezes before Duoneb and Pulmicort via SVN which was tolerated well. BS have decreased wheezes and increased air movement post Tx
--- NOTE | 2016-09-28 20:00 | NUR ---
Patient resting in bed and watching TV with family. No discomforts voiced at this time. In good spirits. Anxious to go home tomorrow. Did eat food that family had brought in. No concerns at this time. Respirations even and non-labored. Respirations non-labored. Call light within reach.
--- NOTE | 2016-09-28 21:30 | NUR ---
HS Accu Check 246mg/dl. Insulin administered as ordered.
[2016-09-28] MEDS: GABAPENTIN 300 MG (NEURONTIN) CAP PO SCH (21:38)
[2016-09-28] MEDS: lisINopril 10 MG (PRINIVIL) TABLET PO SCH (21:38)
[2016-09-28] MEDS: QUEtiapine 50 MG (SEROquel) TAB IMMEDIATE RELEASE PO SCH (21:38)
[2016-09-28] MEDS: MONTELUKAST 10 MG (SINGULAIR) TAB PO SCH (21:38)
[2016-09-28] MEDS: ATORVASTATIN 10 MG (LIPITOR) TABLET PO SCH (21:39)
--- NOTE | 2016-09-29 | NUR ---
Resting quietly. Respirations non-labored.
[2016-09-29 00:35] VITALS: BP_SYST 130; BP_DIAS 60; BP_DIAS 64
[2016-09-29 04:23] VITALS: BP 128/70
--- NOTE | 2016-09-29 06:09 | NUR ---
Patient rested well tonight. Is feeling better and wanting to go home today. A.M. Accu Check 295mg/dl. Sliding scale insulin will be given as ordered before breakfast. Patient in good spirits. Cooperative with cares. Call light within reach.
[2016-09-29] MEDS: INSULIN LISPRO 1 UNIT/0.01 ML (HUMALOG) DOSE SC SCH (06:42)
[2016-09-29 07:42] VITALS: BP 122/70
[2016-09-29] MEDS: guaiFENesin ER 600 MG (MUCINEX) TAB PO SCH (08:34)
[2016-09-29] MEDS: PANTOPRAZOLE 40 MG (PROTONIX) TAB PO SCH (08:34)
[2016-09-29] MEDS: AZITHROMYCIN 250 MG TAB (ZITHROMAX) PO SCH (08:34)
[2016-09-29] MEDS: OMEGA-3 FATTY ACIDS (FISH OIL) 500 MG CAPSULE PO SCH (08:34)
[2016-09-29] MEDS: ASPIRIN 81 MG CHEW (CHILDREN'S ASA) PO SCH (08:34)
[2016-09-29] MEDS: NS FLUSH 3 ML DAILY IV SCH (08:34)
[2016-09-29] MEDS: DOCUSATE SODIUM 100 MG (COLACE) CAP PO SCH (08:34)
[2016-09-29] MEDS: VIIBRYD 40 MG PO SCH (08:34)
[2016-09-29] MEDS: predniSONE 20 MG (DELTASONE) TABLET PO SCH (08:34)
[2016-09-29] MEDS: MULTIVITAMIN W/MINERALS (THERAGRAN M) TABLET PO SCH (08:34)
[2016-09-29] MEDS: ALBUTEROL/IPRATROPIUM 3MG-0.5MG/3ML (DUONEB) NEB VIAL INH SCH (08:35)
[2016-09-29] MEDS: BUDESONIDE NEBS 0.5 MG/2ML (PULMICORT) AMP INH SCH (08:35)
[2016-09-29] MEDS: ENOXAPARIN 40 MG/0.4 ML (LOVENOX) SYR SC SCH (08:35)
--- NOTE | 2016-09-29 10:00 | NUR ---
Reviewed discharge medications with patient. Provided patient handout information for new medications. No additional questions or concerns. Patient verbalized understanding of medications.
--- NOTE | 2016-09-29 10:09 | NUR ---
Discharge order received. IV discontinued with catheter intact. No redness or swelling noted at insertion site. Discharge instructions provided with verbal and written understanding expressed. Dismissed to private car accompanied by son, boyfriend, and UTILIZATION MANAGER. All possessions with patient. No further needs.
== END 2016-09-29 10:04 | disposition home or self-care (01) | DRG 189 ==
LOC: ED 11:56 → MED/SURG 17:21 → UNDOADMOB 17:21 → MED/SURG 09-25 00:01 → OBSVTOIN 09-25 00:01
PROVIDERS: ADMIT Pediatrics; ATTEND Pediatrics
DX: J96.00 Acute respiratory failure, unspecified whether with hypoxia or hypercapnia (principal); J18.9 Pneumonia, unspecified organism; J45.902 Unspecified asthma with status asthmaticus; J20.8 Acute bronchitis due to other specified organisms; E10.649 Type 1 diabetes mellitus with hypoglycemia without coma; E10.42 Type 1 diabetes mellitus with diabetic polyneuropathy; F32.9 Major depressive disorder, single episode, unspecified; F41.9 Anxiety disorder, unspecified; I10 Essential (primary) hypertension; K21.9 Gastro-esophageal reflux disease without esophagitis; B97.81 Human metapneumovirus as the cause of diseases classified elsewhere; Z79.4 Long term (current) use of insulin
CPT/HCPCS: 36415; 71020; 80053; 80069; 83605; 83735; 84484; 85025; 86140; 87040; 87486; 87502; 87581; 87633; 87798; 94640; 94760; 96361; 96372; 96374; 96375; 99283

== ENCOUNTER → 2016-10-05 | Outpatient (CLI) | payer MEDICARE | LOC: RAD 12:51 | PROVIDERS: ATTEND Family Medicine | DX: M79.605 Pain in left leg (principal) ==

== ENCOUNTER 2016-10-13 17:55 | Emergency (ER) | payer MEDICARE ==
[~2016-10-13] VITALS: Ht 167.6 cm; Wt 88.6 kg
[2016-10-13] MEDS ORDERED: oxyCODONE/ACETAMINOPHEN 5MG-325 MG (PERCOCET) TABLET PO ONE (18:35)
[2016-10-13 18:50] VITALS: BP 177/80
== END 2016-10-13 19:09 | disposition home or self-care (01) ==
LOC: ED 17:55
DX: S20.211A Contusion of right front wall of thorax, initial encounter (principal); W19.XXXA Unspecified fall, initial encounter; Y93.89 Activity, other specified; Y92.002 Bathroom of unspecified non-institutional (private) residence as the place of occurrence of the external cause
CPT/HCPCS: 71020; 71100; 99282; A9270; 99283

== ENCOUNTER → 2016-10-18 | Outpatient (REF) | payer MEDICARE ==
[2016-10-18 12:18] LABS: ALBUMIN 3.5 g/dL (3.4-5.0); ANION GAP 11.1 MEQ/L (3-15); CALCULATED IONIZED CALCIUM 4.4 mg/dL (3.8-4.6); TOTAL PROTEIN 6.1 g/dL (6.4-8.5)
== END ==
LOC: LAB 10:22
PROVIDERS: ATTEND Family Medicine
DX: R60.0 Localized edema (principal)
CPT/HCPCS: 80053; 83880

== ENCOUNTER → 2016-11-01 | Outpatient (REF) | payer MEDICARE ==
[2016-11-01 10:38] LABS: ANION GAP 17.1 MEQ/L (3-15)
== END ==
LOC: LAB 09:33
PROVIDERS: ATTEND Family Medicine
DX: R60.9 Edema, unspecified (principal)
CPT/HCPCS: 80048

== ENCOUNTER 2016-12-06 20:22 | Emergency (ER) | payer MEDICARE, OTHER ==
[~2016-12-06] VITALS: Ht 167.6 cm; Wt 87.3 kg
--- OUTSIDE RECORDS SUMMARY | 2016-12-06 20:27 | XMS REPORT | Continuity of Care Document ---
Author Author [facility] Address Unknown Phone Unavailable Support Name Relationship Address Phone SANCHEZ NINA Donna DO Caregiver [address] [place] [address] ROSIE NESBITT Next Of Kin [address] [place], [place] [address] Insurance Providers Payer Name Policy Number Subscriber Name Relationship Medicare A And B [id number] Marlene Bailey 16 Self / Same As Patient Advance Directives Directive Response Recorded Date/Time Advanced Directives No 10/13/16 5:58pm Chief Complaint and Reason for Visit Chief Complaint Injury Reason for Visit Rib injury Problems Active Problems Medical Problem Onset Date Status Asthma ~09/24/2016 Acute Asthma with acute exacerbation Unknown Acute Biliary dyskinesia Unknown Acute Bronchitis ~09/24/2016 Acute Community acquired pneumonia Unknown Acute Cough ~05/03/2015 Acute Diabetes mellitus Unknown Chronic Esophagogastroduodenoscopy 03/13/2012 Chronic Hand pain 06/25/2013 Acute Hiatal hernia Unknown Acute Hypoglycemia 06/02/2016 Acute Pancreatitis, acute Unknown Acute Rib injury Unknown Acute Status asthmaticus Unknown Acute Wound dehiscence Unknown Acute Medications Current Home Medications Medication Dose Units Route Directions Days/Qty Instructions Start Date Atorvastatin Calcium 20 Mg 20 Mg ORAL Bedtime 07/02/14 Dicyclomine Hcl 10 Mg 10-20 Mg ORAL As Needed as needed for Abdominal Pain 05/03/15 Quetiapine Fumarate 50 Mg 150 Mg ORAL Bedtime 06/09/15 Gabapentin (Neurontin) 300 Mg 900 Mg ORAL Bedtime 06/02/16 [place]-3 Fatty Acids 300 Mg 300 Mg ORAL Daily 06/02/16 Multivitamin 1 Each 1 Each ORAL Daily 06/02/16 Benzonatate 100 Mg 100 Mg ORAL Three Times A Day as needed for Dyspnea 18 09/24/16 Lisinopril (Zestril) 10 Mg 10 Mg ORAL Daily 09/25/16 Vilazodone Hydrochloride 40 Mg 40 Mg ORAL Daily 09/25/16 Vit C/E/Zn/Coppr/Lutein/Zeaxan 1 Each 1 Cap ORAL Daily 09/25/16 Omeprazole 20 Mg 20 Mg ORAL Daily 09/25/16 Baclofen (Lioresal) 10 Mg 10 Mg ORAL Three Times A Day as needed for Muscle Spasms 09/25/16 Cholecalciferol (Vitamin D3) 400 Unit 400 Unit ORAL Daily 09/25/16 Polyvinyl Alcohol/Povidone 1 Each 1 Drop OPTHALMIC Three Times A Day 09/25/16 Insulin Glargine,Hum.rec.anlog 100 Unit/1 Ml 15 Unit SUBCUTANEOUS Bedtime 1 09/29/16 Albuterol Sulfate 2.5 Mg/3 Ml 2.5 Mg RESPIRATORY (INHALATION) Every 4HRS as needed for Dyspnea 25 09/29/16 Insulin Aspart 100 Unit/1 Ml 5 Unit Sub-Q Three Times Daily With Meals 1 09/29/16 Montelukast Sodium (Singulair) 10 Mg 10 Mg ORAL Bedtime 30 09/29/16 Budesonide 90 Mcg 2 Puff RESPIRATORY (INHALATION) Twice A Day 1 Azithromycin 250 Mg 250 Mg ORAL Daily 2 09/29/16 Albuterol/Ipratropium 3 Ml 3 Ml RESPIRATORY (INHALATION) Twice A Day 25 09/29/16 Aspirin 81 Mg 81 Mg ORAL Daily 0 09/29/16 Acetaminophen (Tylenol) 325 Mg 650 Mg ORAL Every 6 Hours as needed for Mild Pain 0 09/29/16 Guaifenesin 600 Mg 1,200 Mg ORAL Twice A Day 10 Take for 5 more days, then stop if improving. 09/29/16 Docusate Sodium 100 Mg 100 Mg ORAL Twice A Day as needed for Constipation 0 09/29/16 Magnesium Hydroxide 400 Mg/5 Ml 30 Ml ORAL Four Times Daily as needed for Constipation 0 09/29/16 Polyethylene Glycol 3350 17 Gm 17 Gm ORAL Daily as needed for Constipation 0 09/29/16 Prednisone 20 Mg 60 Mg ORAL Daily@0800 3 09/29/16 Amoxicillin/Clavulanate Potassium 1 Each 1 Tab ORAL Twice A Day for Infection 6 09/29/16 Ibuprofen (Motrin) 200 Mg 600 Mg ORAL Three Times A Day as needed for Pain 0 09/29/16 Albuterol Sulfate 8.5 Gm 2 Puff RESPIRATORY (INHALATION) Every 4HRS as needed for Dyspnea 1 09/29/16 Oxycodone/Acetaminophen 1 Each 1 Each ORAL Every 6 Hours as needed for Pain 30 10/13/16 Past Home Medications Medication Directions Ordered Status Sertraline Hcl (Zoloft) 50 Mg Tablet, 50 Mg Oral Daily 03/13/12 Discontinued Insulin Lispro 100 Unit/1 Ml Cartridge, 25 Unit Sub-Q Before Meals 03/13/12 Discontinued Insulin Glargine,Hum.rec.anlog 100 Unit/1 Ml Cartridge, 60 Unit Sub-Q Bedtime 03/13/12 Discontinued Pravastatin Sodium 40 Mg Tablet, 40 Mg Oral Daily 03/13/12 Discontinued Gabapentin (Neurontin) 300 Mg Capsule, 300 Mg Oral Twice A Day 03/13/12 Discontinued Famotidine 20 Mg Tablet, 20 Mg Oral Daily 03/13/12 Discontinued [Addervestent] , Daily 06/25/13 Discontinued Sertraline Hcl 25 Mg Tablet, 25 Mg Oral Daily 06/25/13 Discontinued Aspirin 81 Mg Tablet.dr, 81 Mg Oral Daily 06/25/13 Discontinued Meloxicam 7.5 Mg Tablet, 7.5 Mg Oral 10/01/13 Discontinued Albuterol Sulfate 2.5 Mg/0.5 Ml Vial.neb, 2.5 Mg Respiratory (Inhalation) Four Times Daily 10/04/13 Discontinued Albuterol Sulfate 2.5 Mg/0.5 Ml Vial.neb, 2.5 Mg Respiratory (Inhalation) Every 2 Hours While Awake as needed for Shortness Of Breath 10/04/13 Discontinued Atorvastatin 20 Mg Tablet, 20 Mg Oral Bedtime 10/04/13 Discontinued Azithromycin 250 Mg Tablet, 250 Mg Oral Daily 10/04/13 Discontinued Cefdinir (Omnicef) 300 Mg Capsule, 300 Mg Oral Twice A Day 10/04/13 Discontinued Metformin Hcl (Glucophage) 500 Mg Tablet, 500 Mg Oral Twice A Day 01/21/14 Discontinued Dicyclomine Hcl 10 Mg Capsule, 10 Mg Oral Daily 07/01/14 Discontinued Zolpidem Tartrate (Ambien) 10 Mg Tablet, 10 Mg Oral Bedtime 07/02/14 Discontinued Esomeprazole Magnesium 40 Mg Cap, 40 Mg Oral Daily 07/02/14 Discontinued Metformin Hcl (Glucophage) 1,000 Mg Tablet, 1000 Mg Oral Twice A Day With Meals 07/02/14 Discontinued Sertraline Hcl (Zoloft) 50 Mg Tablet, 50 Mg Oral Daily 07/02/14 Discontinued Lisinopril 5 Mg Tablet, 5 Mg Oral Daily 07/05/14 Discontinued Pantoprazole Sod 40 Mg Tab, 40 Mg Oral Daily 05/03/15 Discontinued Zolpidem Tartrate 10 Mg Tablet, 10 Mg Oral Bedtime 06/08/15 Discontinued Lisinopril (Zestril) 5 Mg Tablet, 5 Mg Oral Daily 06/08/15 Discontinued Insulin Glargine,Hum.rec.anlog 100 Unit/1 Ml Vial, 26 Unit Subcutaneous Bedtime 06/02/16 Discontinued Vilazodone Hydrochloride 20 Mg Tablet, 20 Mg Daily 06/02/16 Discontinued Vit A/C/E Ac/Znox/Cupric Oxide 1 Each Tablet, 1 Each Oral Daily 06/02/16 Discontinued Levofloxacin 500 Mg Tablet, 1 Tab Oral Daily for Infection 09/24/16 Discontinued Methylprednisolone 21 Tab/Pkt Tablet, 21 Tab Oral As Directed 09/24/16 Discontinued Albuterol Sulfate 2.5 Mg/3 Ml Vial.neb, 2.5 Mg Respiratory (Inhalation) Every 4HRS as needed for Dyspnea 09/24/16 Discontinued Insulin Aspart 100 Unit/1 Ml Insuln.pen, 10 Unit Sub-Q Three Times Daily With Meals 09/25/16 Discontinued Montelukast Sodium (Singulair) 10 Mg Tablet, 10 Mg Oral Bedtime 09/25/16 Discontinued Budesonide 90 Mcg Aer.pow.ba, 2 Puff Respiratory (Inhalation) Twice A Day Discontinued Albuterol Sulfate 2.5 Mg/3 Ml Vial.neb, 1 Vial Nebulizer Every 4 Hrs On Schedule as needed for Wheezing 09/25/16 Discontinued Social History Social History Problem Response Recorded Date/Time Onset Date Status Exposure to occupational hazards No 09/24/2016 5:57pm Query Response Start Date Stop Date Smoking Status Former smoker Hospital Discharge Instructions No hospital discharge instructions. Plan of Care Discharge Date 10/13/16 7:09pm Disposition 01 HOME OR SELF-CARE Condition at Discharge Stable Instructions/Education Provided Oxycodone and Acetaminophen Bruised Rib (DC) Prescriptions See Medication Section Additional Instructions/Education Take the pain medication as needed. Do the incentive spirometry every 30 minutes for a few days. See your doctor next week if not improving. Some of your test results may not be complete prior to your leaving the Emergency Department. The Emergency Department is not authorized to give test results over the phone. Please contact the doctor's office listed in this packet of information for your final results. Follow up with your primary care physician or return to the Emergency Department for worsening or worrisome symptoms. * Emergency Department phone number: [phone], x [phone]* MEDICAL RECORD If you need copies of your X-rays, call [phone]. If you need copies of your medical record, including lab results, a signed authorization for release of records will be required. A telephone call for release of Health Information is not allowed. BILLING Billing can sometimes be confusing and frustrating. To help avoid confusion in the future, please take a moment to acquaint yourself with the billing parties for services. SERVICE BILLING DEMOCRAT Emergency Room Services [facility] Physician Services [facility] X[facility] Patients will receive bills for services from the appropriate provider. If you have any questions about your [facility] bill, our staff will be happy to assist you. Please call [phone], and ask for the billing department. THANK YOU for choosing [facility] as your emergency care provider! Care Plan and Goals ~~Discharge Care Plan~~ Problem: Back pain Goal: Decreased level of pain. Return to usual activities. Instructions: Take medication(s) as directed; follow up with your primary care physician as directed; follow patient home care instructions. Apply ice or heat to site for comfort. Functional Status No functional status results. Allergies, Adverse Reactions, Alerts Allergen Type Severity Reaction Status Last Updated hydromorphone HCl Adverse Reaction Intermediate Active 10/13/16 hydrocodone bitartrate Allergy Mild Rash Active 10/13/16 Sucralfate Allergy Unknown Active 10/13/16 Tramadol Allergy Unknown Active 10/13/16 Metformin Allergy Unknown Active 03/17/17 esomeprazole Allergy Unknown Active 10/13/16 orange Allergy Unknown Active 10/13/16 Immunizations No immunization records. Vital Signs Acute Vital Signs Vital Response Date/Time Temperature (Fahrenheit) 98.7 10/13/2016 6:50pm Pulse 88 bpm 10/13/2016 6:50pm Respirations 16 10/13/2016 6:50pm Height 5 ft 6 in Weight 195 lb Body Mass Index 31.0 kg/m^2 Results Laboratory Results Test Name Result Units Flags Reference Collection Date/Time Result Date/ Time Comments White Blood Count 15.68 10^3uL H 4.0-11.0 09/28/2016 10:10am 09/28/2016 10:15am Red Blood Count 4.08 10^6uL 4.00-5.00 09/28/2016 10:10am 09/28/2016 10: 15am Hemoglobin 12.5 g/dL 12.0-15.5 09/28/2016 10:10a09/28/2016 10:15am Hematocrit 36.80 % 35.00-45.00 09/28/2016 10:10a09/28/2016 10:15am Mean Corpuscular Volume 90 FL 80-100 09/28/2016 10:10a09/28/2016 10: 15am Mean Corpuscular Hemoglobin 30.6 PG 26.0-34.0 09/28/2016 10:10a2016 10:15am Mean Corpuscular Hemoglobin Concent 34.0 g/dL 31.0-37.0 09/28/2016 10: 10a09/28/2016 10:15am Red Cell Distribution Width 12.4 % 11.8-15.6 09/28/2016 10:10a2016 10:15am Platelet Count 412 10^3uL 150-450 09/28/2016 10:10a09/28/2016 10: 15am Mean Platelet Volume 9.3 FL 6.0-9.5 09/28/2016 10:10a09/28/2016 10: 15am Neutrophils (%) (Auto) 61 % 51-67 09/28/2016 10:10am 09/28/2016 10: 15am Lymphocytes (%) (Auto) 32 % 20-46 09/28/2016 10:10am 09/28/2016 10: 15am Monocytes (%) (Auto) 6 % 3-11 09/28/2016 10:10am 09/28/2016 10:15am Eosinophils (%) (Auto) 0 % 0-4 09/28/2016 10:10am 09/28/2016 10:15am Basophils (%) (Auto) 0 % 0-2 09/28/2016 10:10am 09/28/2016 10:15am Neutrophils # (Auto) 9.5 X10^3 09/28/2016 10:10am 09/28/2016 10:15am Lymphocytes # (Auto) 5.0 X10^3 09/28/2016 10:10am 09/28/2016 10:15am Monocytes # (Auto) 1.0 X10^3 09/28/2016 10:10am 09/28/2016 10:15am Eosinophils # (Auto) 0.1 10^3uL 09/28/2016 10:10am 09/28/2016 10: 15am Basophils # (Auto) 0.0 10^3uL 09/28/2016 10:10am 09/28/2016 10:15am Differential Total Cells Counted 100 09/27/2016 5:40am 09/27/2016 7 :06am Segmented Neutrophils % 88 % H 51-67 09/27/2016 5:40am 09/27/2016 7: 06am Band Neutrophils % 0 % 0-6 09/27/2016 5:40am 09/27/2016 7:06am Lymphocytes % (Manual) 9 % L 20-46 09/27/2016 5:40am 09/27/2016 7:06am Monocytes % (Manual) 1 % L 3-11 09/27/2016 5:40am 09/27/2016 7:06am Eosinophils % (Manual) 0 % 0-4 09/27/2016 5:40am 09/27/2016 7:06am Basophils % (Manual) 0 % 0-2 09/27/2016 5:40am 09/27/2016 7:06am Neutrophils # 17.1 # 09/27/2016 5:40am 09/27/2016 7:06am Absolute Band Neutrophils 0.0 # 09/27/2016 5:40am 09/27/2016 7:06am Lymphocytes # 1.8 # 09/27/2016 5:40am 09/27/2016 7:06am Monocytes # 0.2 # 09/27/2016 5:40am 09/27/2016 7:06am Eosinophils # 0.0 # 09/27/2016 5:40am 09/27/2016 7:06am Basophils # (Manual) 0.0 # 09/27/2016 5:40am 09/27/2016 7:06am Atypical Lymphocytes 2 % <1 09/27/2016 5:40am 09/27/2016 7:06am Blood Morphology Comment NORMAL NORMAL 09/27/2016 5:40am 09/27/2016 7 :06am Sodium Level 140 mmol/L 135-150 09/26/2016 5:35am 09/26/2016 6:24am Potassium Level 4.2 mmol/L # 3.5-5.1 09/26/2016 5:35am 09/26/2016 6:24am Chloride Level 107 mmol/L 98-108 09/26/2016 5:35am 09/26/2016 6:24am Carbon Dioxide Level 26 mmol/L -09/26/2016 5:35am 09/26/2016 6: 24am Anion Gap 11.4 MEQ/L 3-15 09/26/2016 5:35am 09/26/2016 6:24am Blood Urea Nitrogen 9 mg/dL 7-09/26/2016 5:35am 09/26/2016 6:24am Creatinine 0.57 mg/dL L 0.6-1.2 09/26/2016 5:35am 09/26/2016 6:24am BUN/Creatinine Ratio 20 10-20 09/25/2016 5:12am 09/25/2016 6:37am Estimat Glomerular Filtration Rate 134.2 09/26/2016 5:35am 2016 6:24am Estimated GFR (Non- 111.0 09/26/2016 5:35am 2016 6:24am Glucose Level 292 mg/dL # H 70-110 09/26/2016 5:35am 09/26/2016 6:24am Calculated Osmolality 292 mosm/L 280-300 09/25/2016 5:12am 09/25/2016 6 :37am Calcium Level 9.0 mg/dL 8.8-10.8 09/26/2016 5:35am 09/26/2016 6:24am Calcium/Ionized Calcium Ratio 4.5 mg/dL 3.8-4.6 09/25/2016 5:12am 09/25 6:37am Phosphorus Level 3.8 mg/dL 2.4-4.9 09/26/2016 5:35am 09/26/2016 6:24am Magnesium Level 2.1 mg/dL 1.6-2.3 09/26/2016 5:35am 09/26/2016 6:24am Total Bilirubin 0.7 mg/dL 0.1-1.0 09/25/2016 5:12am 09/25/2016 6:37am Alkaline Phosphatase 125 U/L 38-126 09/25/2016 5:12am 09/25/2016 6: 37am Aspartate Amino Transf (AST/SGOT) 20 U/L 15-37 09/25/2016 5:12am 2016 6:37am Alanine Aminotransferase (ALT/SGPT) 37 U/L 30-65 09/25/2016 5:12am 6:37am Troponin I 0.031 ng/mL 0.010-0.080 09/27/2016 5:40am 09/27/2016 6:38am Total Protein 6.4 g/dL 6.4-8.5 09/25/2016 5:12am 09/25/2016 6:37am Albumin 3.4 g/dL 3.4-5.0 09/26/2016 5:35am 09/26/2016 6:24am Albumin/Globulin Ratio 1.370 1.1-1.8 09/25/2016 5:12am 09/25/2016 6: 37am C-Reactive Protein 2.10 mg/dL H 0.0-0.9 09/27/2016 5:40am 09/27/2016 6: 29am Lactic Acid Level 2.3 mmol/L H 0.7-2.1 09/24/2016 4:49pm 09/24/2016 5: 08pm Influenza Virus Type A Antibody Negative NEGATIVE 09/24/2016 12:50pm 09/24/2016 1:08pm Influenza Virus Type B Antibody Negative NEGATIVE 09/24/2016 12:50pm 09/24/2016 1:08pm Adenovirus (PCR) Negative Negative 09/24/2016 3:15pm 09/24/2016 4: 49pm Coronavirus Type 229E (PCR) Negative Negative 09/24/2016 3:15pm 09/24 4:49pm Coronavirus Type HKU1 (PCR) Negative Negative 09/24/2016 3:15pm 09/24 4:49pm Coronavirus Type NL63 (PCR) Negative Negative 09/24/2016 3:15pm 09/24 4:49pm Coronavirus Type OC43 (PCR) Negative Negative 09/24/2016 3:15pm 09/24 4:49pm Human Metapneumovirus (PCR) POSITIVE Negative 09/24/2016 3:15pm 09/24 4:49pm Enterovirus/Rhinovirus (PCR) Negative Negative 09/24/2016 3:15pm 4:49pm Influenza Type A (H1) (PCR) Negative Negative 09/24/2016 3:15pm 09/24 4:49pm Influenza Virus Type B (PCR) Negative Negative 09/24/2016 3:15pm 4:49pm Parainfluenza Type 1 (PCR) Negative Negative 09/24/2016 3:15pm 2016 4:49pm Parainfluenza Type 2 (PCR) Negative Negative 09/24/2016 3:15pm 2016 4:49pm Parainfluenza Type 3 (PCR) Negative Negative 09/24/2016 3:15pm 2016 4:49pm Parainfluenza Type 4 (PCR) Negative Negative 09/24/2016 3:15pm 2016 4:49pm Respiratory Syncytial Virus (PCR) Negative Negative 09/24/2016 3:15pm 09/24/2016 4:49pm Bordetella parapertussis DNA (PCR) Negative Negative 09/24/2016 3: 15pm 09/24/2016 4:49pm Chlamydophila pneumoniae (PCR) Negative Negative 09/24/2016 3:15pm 4:49pm Mycoplasma pneumoniae (PCR) Negative Negative 09/24/2016 3:15pm 09/24 4:49pm Microbiology Results Procedure Source Result Collection Date/Time Result Date/Time Blood Culture Peripheral, :Lab Indicates After Collectio No Growth in 5 days 09/24/2016 UNK 09/30/2016 6:38am Procedures Procedure Status Date Provider(s) EXTREMITY STUDY Completed 10/05/16 Encounters Encounter Location Arrival/Admit Date Discharge/Depart Date Attending Provider Registered Emergency Room [facility] 10/13/16 5:55pm NINA SANCHEZ DO Registered Clinic [facility] 10/05/16 12:51pm TOD CARRASCO MD Discharged Inpatient [facility] 09/25/16 12:01am 09/29/16 10:04am SOL HENDERSON MD Recent Diagnosis
[2016-12-06] MEDS ORDERED: KETOROLAC 60 MG/2 ML (TORADOL) VIAL IM ONE (21:00)
--- NOTE | 2016-12-06 21:23 | Diagnostic Imaging Report ---
INDICATION: Pain after fall. 3 views were obtained. FINDINGS: The alignment is normal. There is no fracture or dislocation. There are minimal degenerative changes. IMPRESSION: Mild degenerative change otherwise unremarkable. Dictated by: Dictated on workstation # [id number]
[2016-12-06 22:07] VITALS: BP 124/82
== END 2016-12-06 22:09 | disposition home or self-care (01) ==
LOC: ED 20:23
DX: S96.911A Strain of unspecified muscle and tendon at ankle and foot level, right foot, initial encounter (principal); W07.XXXA Fall from chair, initial encounter; Y93.89 Activity, other specified; Y92.009 Unspecified place in unspecified non-institutional (private) residence as the place of occurrence of the external cause
CPT/HCPCS: 73630; 96372; 99283; J1885; 99282

== ENCOUNTER → 2016-12-20 | Outpatient (CLI) | payer MEDICARE, OTHER ==
--- NOTE | 2016-12-20 11:07 | Diagnostic Imaging Report ---
INDICATION: Chest pain, wheezing, and cough. EXAMINATION: Two view chest on 12/20/2016. COMPARISON: 10/13/2016. FINDINGS: The heart is stable. The pulmonary vasculature is unchanged. Deformity of a right lateral rib is noted, stable from the previous exam, and likely congenital or post operative, correlate clinically. Small densities in the right midlung are stable from recent imaging. These could be followed to assure continued stability. No pneumothorax is seen. There are no infiltrates or effusions. No acute fracture is identified. IMPRESSION: Vague rounded densities in the right midlung with followup recommended to assure stability. The remaining chest is stable. Dictated by: Dictated on workstation # [id number]
== END ==
LOC: RAD 10:18
PROVIDERS: ATTEND Family Medicine
DX: R06.02 Shortness of breath (principal)
CPT/HCPCS: 71020